=== PATIENT | male | born 1940 | race Caucasian/White ===

== ENCOUNTER → 2019-04-09 10:26 | Day surgery (SDC) | payer MEDICARE ==
[~2019-04-09 10:26] MED LIST: Acetaminophen TAB* 325 MG ONE; Acetaminophen TAB* 325 MG PO ONE; Buffered Lidocaine 1% SYRIN* 1 ML/SYRINGE INTRADERM ONE; Bupivacaine 0.5%* 50 ML MDV VIAL ONE; EPHEDrine (Pressors)* 50 MG/ML VIAL ONE; Glycopyrrolate IV* 0.2 MG/ML 1 ML VIAL ONE; HYDROmorphone INJ1* 1 MG/ML SYRINGE IV PRN; Ketorolac INJ* 30 MG/ML 1 ML VIAL ONE; Lactated Ringers 1000 ML Bag* 1,000 ML IV SCH; Lidocaine 2% PF* 10 ML AMP ONE; Midazolam* 1 MG/ML 2 ML VIAL (2 MG) ONE; Naloxone* 0.4 MG/ML 1 ML VIAL IV PRN; Neostigmine Methylsulfate* 3 MG/3 ML SYRINGE ONE; Ondansetron INJ* 2 MG/ML VIAL IV PRN; Ondansetron INJ* 2 MG/ML VIAL ONE; PROCHLORPERAZINE INJ 5 MG/ML 2 ML VIAL IV PRN; Propofol* 10 MG/ML 20 ML BTL ONE; Rocuronium* 10 MG/ML VIAL ONE; Succinylcholine* 20 MG/ML 10 ML VIAL ONE; Vancomycin(*) 1,000 MG in NS 0.9% 250 ML* 250 ML IV ONE; diPHENhydraMINE IV* 50 MG/ML 1 ml VIAL (BENADRYL) IV PRN; fentaNYL* 50 MCG/ML 5 ML VIAL (250 MCG VIAL) ONE; oxyCODONE TAB* 5 MG TAB PO PRN
[2019-04-09 11:42] LABS: ABS Eosinophils 0.1 10^3/ul (0-0.6); ABS Monocytes 0.8 10^3/ul (0-0.8); ABS Neutrophils 2.8 10^3/ul (1.5-7.7); Eosinophil % 2.9 %; Hematocrit 32 % (42-52); Hemoglobin 11.3 g/dL (14.0-18.0); Lymphocyte % 20.8 %; Mean Corpuscular HGB Conc 35 g/dL (31-36); Mean Corpuscular Hemoglobin 38 pg (27-31); Mean Corpuscular Volume 109 fL (80-94); Mean Platelet Volume 8.5 fL (7.4-10.4); Nucleated Red Blood Cells % 0.1; Platelet Count 168 10^3/uL (150-450); Red Blood Count 2.97 10^6 /uL (4.18-5.48); Red Cell Distribution Width 17 % (10-15); White Blood Count 4.7 10^3/uL (3.5-10.8)
--- NOTE | 2019-04-09 20:00 | OP ---
DATE OF OPERATION: 04/09/19 - [facility] DATE OF : 42 SURGEON: Cole Thornton MD FLOOR HELPER: ISRAEL Beard PRE-OP DIAGNOSIS: Left inguinal hernia. POST-OP DIAGNOSIS: Left inguinal hernia. OPERATIVE PROCEDURE: Repair of left inguinal hernia with mesh, robotic. INDICATIONS FOR PROCEDURE: Left inguinal hernia, symptomatic. Risks including , but not limited to bleeding, infection, injury to intraabdominal contents including the bowel, pelvic nerves and vessels, recurrence of the hernia explained to the patient, who seemed to understand, agreed to the procedure, and all questions were answered. DESCRIPTION OF PROCEDURE: The patient was taken to the operating room, placed supine. Preoperative antibiotics had been given. After the successful induction of general endotracheal anesthesia, the abdomen was prepped and draped in a sterile fashion. A left upper quadrant 5-mm Optiview trocar was placed under direct visualization of the camera. Pneumoperitoneum was achieved to 15 mmHg. A camera was placed in the abdomen. The abdomen was scanned. There was no obvious injury from trocar placement. An 8-mm supraumbilical and a right upper quadrant 8-mm robotic trocar were placed under direct visualization of the camera. The 5-mm trocar was replaced with an 8-mm trocar. The patient was placed in the slight Trendelenburg position. The robot was brought in and then docked. A left inguinal anatomic mesh and 3-0 V-Loc suture were placed into the abdomen under direct visualization of the camera. The peritoneum was taken down along with a large hernia sac, which was gently dissected from the spermatic cord. The anatomic mesh was then placed over the left hemipelvis covering the femoral, direct, and indirect spaces. The peritoneum was then closed using running 3-0 V-Loc suture. The needle was removed. The abdomen was scanned. There was no obvious injury. Pneumoperitoneum was released from the abdomen. The trocars were removed. The skin was closed with Monocryl and glue. The patient tolerated the procedure well. He was extubated and taken to Recovery in stable condition. [id number]/CPS #: [id number] [facility]
[2019-04-13 20:05] VITALS: BP 133/71
== END | disposition home or self-care (01) ==
LOC: OR 10:26
PROVIDERS: ATTEND Surgery
DX: K40.90 Unilateral inguinal hernia, without obstruction or gangrene, not specified as recurrent (principal); I10 Essential (primary) hypertension; E78.5 Hyperlipidemia, unspecified; R73.03 Prediabetes; Z87.891 Personal history of nicotine dependence; C15.9 Malignant neoplasm of esophagus, unspecified
CPT/HCPCS: 49650; S2900; 36415; 85025; A9270-GY; C1781; J0330; J1885; J2001; J2250; J2405; J2704; J2710; J3010; J3370; J3490

== ENCOUNTER 2020-11-04 04:01 | Inpatient (IN) ==
[2020-11-04 04:41] LABS: ABS Lymphocytes 0.4 10^3/ul (1.0-4.8); ABS Monocytes 0.2 10^3/ul (0-0.8); ABS Neutrophils 1.2 10^3/ul (1.5-7.7); Eosinophil % 1.5 %; Hematocrit 32 % (42-52); Hemoglobin 10.8 g/dL (14.0-18.0); Lymphocyte % 23.7 %; Mean Corpuscular HGB Conc 33 g/dL (31-36); Mean Corpuscular Hemoglobin 35 pg (27-31); Mean Corpuscular Volume 105 fL (80-94); Nucleated Red Blood Cells % 0.6; Platelet Count 103 10^3/uL (150-450); Red Blood Count 3.08 10^6 /uL (4.18-5.48); Red Cell Distribution Width 22 % (10-15); White Blood Count 1.8 10^3/uL (3.5-10.8)
[2020-11-04 04:55] LABS: INR 1.11 (0.82-1.09)
[2020-11-04 05:00] LABS: Albumin 3.8 g/dL (3.2-5.2); Albumin/Globulin Ratio 1.2 (1-3); Calcium 8.8 mg/dL (8.6-10.3); EGFR African American 53.4 (>60); EGFR Non-African American 44.1 (>60); Globulin 3.2 g/dL (2-4); Total Bilirubin 0.9 mg/dL (0.2-1.0)
[2020-11-04 05:01] LABS: Troponin I 0.01 ng/mL (<0.03)
[2020-11-04] MEDS ORDERED: Morphine 2 MG/ML SYRINGE IV ONE (05:57)
[2020-11-04 07:44] LABS: Troponin I 0.03 ng/mL (<0.03)
[2020-11-04] MEDS ORDERED: Piperacillin/Tazobac ADVAN 3.375 GM in NS 0.9% 100 ml BAG 100 ML IV ONE (08:53)
[2020-11-04] MEDS ORDERED: Ondansetron 4 mg VIAL 2 MG/ML 2 ml VIAL IV PRN (10:17)
[2020-11-04 10:19] LABS: Troponin I 0.13 ng/mL (<0.03)
[2020-11-04] MEDS ORDERED: NS 0.9% 1000 ml BAG 1,000 ML IV SCH (10:30)
[2020-11-04] MEDS ORDERED: Zosyn per Pharmacy NOTE FOLLOW UP SCH (11:00)
[2020-11-04] MEDS: ZOSYN 3.375 GM Q8H per EXTENDED INFUSION IV SCH ×2 (13:26→21:32)
[2020-11-04 13:27] LABS: Troponin I 0.53 ng/mL (<0.03)
[2020-11-04] MEDS: Morphine 2 MG/ML SYRINGE IV PRN (13:45)
[2020-11-04] MEDS ORDERED: fentaNYL 100 mcg/2 ml 50 MCG/ML VIAL ONE ×2 (15:26→15:54)
[2020-11-04 18:29] LABS: Troponin I 1.72 ng/mL (<0.03)
[2020-11-05 01:34] LABS: Troponin I 4.24 ng/mL (<0.03)
[2020-11-05] MEDS ORDERED: Heparin DRIP 25,000 UNITS BAG 25,000 UNITS/500 ML BAG IV SCH (02:15)
[2020-11-05] MEDS ORDERED: Heparin 5000 UNITS/ML 1 mL VIAL IV SCH (03:00)
[2020-11-05 03:58] LABS: EGFR African American 44.5 (>60); EGFR Non-African American 36.8 (>60)
[2020-11-05 04:44] LABS: Hematocrit 32 % (42-52); Hemoglobin 11.1 g/dL (14.0-18.0); Mean Corpuscular HGB Conc 35 g/dL (31-36); Mean Corpuscular Hemoglobin 36 pg (27-31); Mean Corpuscular Volume 105 fL (80-94); Mean Platelet Volume 8.9 fL (7.4-10.4); Platelet Count 76 10^3/uL (150-450); Red Blood Count 3.07 10^6 /uL (4.18-5.48); Red Cell Distribution Width 22 % (10-15); White Blood Count 3.6 10^3/uL (3.5-10.8)
[2020-11-05] MEDS: ZOSYN 3.375 GM Q8H per EXTENDED INFUSION IV SCH ×3 (05:51→23:06)
[2020-11-05 06:07] LABS: ABS Lymphocytes 0.4 10^3/ul (1.0-4.8); ABS Monocytes 0.2 10^3/ul (0-0.8); ABS Neutrophils 2.9 10^3/ul (1.5-7.7); Eosinophil % 0.1 %; Lymphocyte % 11.3 %; Nucleated Red Blood Cells % 0.2
[2020-11-05 07:21] LABS: Troponin I 3.54 ng/mL (<0.03)
[2020-11-05] MEDS: Morphine 2 MG/ML SYRINGE IV PRN (08:43)
[2020-11-05] MEDS ORDERED: NS 0.9% 500 ml BAG 500 ML IV ONE (09:16)
[2020-11-05] MEDS ORDERED: Enoxaparin 40 MG/0.4 ML SYR SUBCUT SCH (11:00)
[2020-11-05 12:13] LABS: Albumin/Globulin Ratio 1.1 (1-3); Calcium 7.6 mg/dL (8.6-10.3); EGFR African American 43.2 (>60); EGFR Non-African American 35.7 (>60); Globulin 2.8 g/dL (2-4); HDL Cholesterol 51.2 mg/dL; Potassium 3.4 mmol/L (3.5-5.0); Total Bilirubin 0.8 mg/dL (0.2-1.0); Total Protein 5.8 g/dL (6.4-8.9)
[2020-11-05 12:14] LABS: ABS Lymphocytes 0.5 10^3/ul (1.0-4.8); ABS Monocytes 0.1 10^3/ul (0-0.8); Eosinophil % 0.1 %; Hematocrit 29 % (42-52); Hemoglobin 9.9 g/dL (14.0-18.0); Lymphocyte % 11.1 %; Mean Corpuscular HGB Conc 34 g/dL (31-36); Mean Corpuscular Hemoglobin 36 pg (27-31); Mean Corpuscular Volume 106 fL (80-94); Mean Platelet Volume 10.7 fL (7.4-10.4); Nucleated Red Blood Cells % 0.1; Platelet Count 76 10^3/uL (150-450); Red Blood Count 2.75 10^6 /uL (4.18-5.48); Red Cell Distribution Width 22 % (10-15); White Blood Count 4.7 10^3/uL (3.5-10.8)
[2020-11-05] MEDS ORDERED: Perflutren Lipid Microsphere 3 ML VIAL ONE (13:10)
[2020-11-06] MEDS: ZOSYN 3.375 GM Q8H per EXTENDED INFUSION IV SCH ×3 (05:07→20:26)
[2020-11-06 05:29] LABS: ABS Eosinophils 0.1 10^3/ul (0-0.6); ABS Lymphocytes 0.7 10^3/ul (1.0-4.8); ABS Monocytes 0.2 10^3/ul (0-0.8); ABS Neutrophils 4.8 10^3/ul (1.5-7.7); Hematocrit 29 % (42-52); Hemoglobin 9.9 g/dL (14.0-18.0); Mean Corpuscular HGB Conc 34 g/dL (31-36); Mean Corpuscular Hemoglobin 36 pg (27-31); Mean Corpuscular Volume 106 fL (80-94); Mean Platelet Volume 10.1 fL (7.4-10.4); Nucleated Red Blood Cells % 0.1; Platelet Count 78 10^3/uL (150-450); Red Blood Count 2.76 10^6 /uL (4.18-5.48); Red Cell Distribution Width 22 % (10-15); White Blood Count 5.7 10^3/uL (3.5-10.8)
[2020-11-06] MEDS ORDERED: NS 0.9% 500 ml BAG 500 ML IV ONE (11:17)
[2020-11-06 16:18] LABS: Urine Appearance Turbid; Urine Bilirubin Negative (Negative); Urine Blood 1+ (Negative); Urine Color Amber; Urine Glucose 1+(50 mg/dL) (Negative); Urine Ketones Negative (Negative); Urine Nitrite Negative (Negative); Urine Protein 2+(100 mg/dL) (Negative); Urine Specific Gravity 1.027 (1.002-1.030); Urine Urobilinogen Negative (Negative)
[2020-11-06 16:25] LABS: Urine Bacteria Absent (Absent); Urine Red Blood Cell Trace(0-2/hpf) (Absent); Urine White Blood Cell Absent (Absent)
[2020-11-07] MEDS: ZOSYN 3.375 GM Q8H per EXTENDED INFUSION IV SCH ×3 (05:29→22:41)
[2020-11-07 07:01] LABS: Anion Gap 6 mmol/L (2-11); Blood Urea Nitrogen 20 mg/dL (6-24); CO2 Carbon Dioxide 24 mmol/L (22-32); Calcium 7.6 mg/dL (8.6-10.3); Chloride 104 mmol/L (101-111); EGFR Non-African American 56.2 (>60); Glucose 106 mg/dL (70-100); Potassium 3.3 mmol/L (3.5-5.0); Sodium 134 mmol/L (135-145)
[2020-11-07 08:51] LABS: Troponin I 0.63 ng/mL (<0.03)
[2020-11-07 09:22] LABS: Magnesium 1.9 mg/dL (1.9-2.7)
[2020-11-07] MEDS ORDERED: Potassium Chlor 20 meq TAB.ER PO ONE (14:00)
[2020-11-07 18:35] LABS: ALT 14 U/L (7-52); AST 30 U/L (13-39); Albumin 2.7 g/dL (3.2-5.2); Alkaline Phosphatase 54 U/L (35-149); Globulin 2.7 g/dL (2-4); Total Protein 5.4 g/dL (6.4-8.9)
[2020-11-08] MEDS: ZOSYN 3.375 GM Q8H per EXTENDED INFUSION IV SCH ×3 (05:15→21:14)
[2020-11-08 05:39] LABS: ABS Eosinophils 0.1 10^3/ul (0-0.6); ABS Lymphocytes 0.6 10^3/ul (1.0-4.8); ABS Monocytes 0.4 10^3/ul (0-0.8); ABS Neutrophils 2.2 10^3/ul (1.5-7.7); Eosinophil % 4.2 %; Hematocrit 24 % (42-52); Hemoglobin 8.4 g/dL (14.0-18.0); Lymphocyte % 17.2 %; Mean Corpuscular HGB Conc 34 g/dL (31-36); Mean Corpuscular Hemoglobin 36 pg (27-31); Mean Corpuscular Volume 104 fL (80-94); Mean Platelet Volume 8.3 fL (7.4-10.4); Nucleated Red Blood Cells % 0.2; Platelet Count 59 10^3/uL (150-450); Red Blood Count 2.34 10^6 /uL (4.18-5.48); Red Cell Distribution Width 21 % (10-15); White Blood Count 3.4 10^3/uL (3.5-10.8)
[2020-11-08 05:49] LABS: Albumin 2.8 g/dL (3.2-5.2); Calcium 7.5 mg/dL (8.6-10.3); EGFR African American 79.8 (>60); Globulin 2.7 g/dL (2-4); Potassium 3.8 mmol/L (3.5-5.0); Total Bilirubin 0.6 mg/dL (0.2-1.0); Total Protein 5.5 g/dL (6.4-8.9)
[2020-11-09] MEDS: ZOSYN 3.375 GM Q8H per EXTENDED INFUSION IV SCH ×3 (05:16→21:18)
[2020-11-09 07:26] LABS: ABS Eosinophils 0.2 10^3/ul (0-0.6); ABS Lymphocytes 0.6 10^3/ul (1.0-4.8); ABS Monocytes 0.6 10^3/ul (0-0.8); ABS Neutrophils 1.3 10^3/ul (1.5-7.7); Eosinophil % 5.8 %; Hematocrit 25 % (42-52); Hemoglobin 8.7 g/dL (14.0-18.0); Lymphocyte % 21.1 %; Mean Corpuscular HGB Conc 35 g/dL (31-36); Mean Corpuscular Hemoglobin 36 pg (27-31); Mean Corpuscular Volume 104 fL (80-94); Mean Platelet Volume 8.4 fL (7.4-10.4); Nucleated Red Blood Cells % 0.1; Platelet Count 66 10^3/uL (150-450); Red Blood Count 2.41 10^6 /uL (4.18-5.48); Red Cell Distribution Width 22 % (10-15); White Blood Count 2.7 10^3/uL (3.5-10.8)
[2020-11-09 07:38] LABS: Albumin 2.7 g/dL (3.2-5.2); Albumin/Globulin Ratio 0.9 (1-3); Calcium 7.8 mg/dL (8.6-10.3); EGFR Non-African American 65.3 (>60); Total Bilirubin 0.6 mg/dL (0.2-1.0); Total Protein 5.7 g/dL (6.4-8.9)
[2020-11-10] MEDS: ZOSYN 3.375 GM Q8H per EXTENDED INFUSION IV SCH (05:53)
[2020-11-10 06:39] LABS: ABS Eosinophils 0.2 10^3/ul (0-0.6); ABS Lymphocytes 0.8 10^3/ul (1.0-4.8); ABS Monocytes 0.7 10^3/ul (0-0.8); ABS Neutrophils 1.8 10^3/ul (1.5-7.7); Eosinophil % 4.8 %; Hematocrit 27 % (42-52); Hemoglobin 9.2 g/dL (14.0-18.0); Lymphocyte % 21.8 %; Mean Corpuscular HGB Conc 34 g/dL (31-36); Mean Corpuscular Hemoglobin 36 pg (27-31); Mean Corpuscular Volume 105 fL (80-94); Platelet Count 89 10^3/uL (150-450); Red Blood Count 2.56 10^6 /uL (4.18-5.48); Red Cell Distribution Width 21 % (10-15); White Blood Count 3.5 10^3/uL (3.5-10.8)
[2020-11-10 06:43] LABS: Albumin 2.8 g/dL (3.2-5.2); Albumin/Globulin Ratio 0.9 (1-3); Calcium 8.1 mg/dL (8.6-10.3); EGFR African American 75.7 (>60); EGFR Non-African American 62.6 (>60); Globulin 3.1 g/dL (2-4); Total Bilirubin 0.6 mg/dL (0.2-1.0); Total Protein 5.9 g/dL (6.4-8.9)
[2020-11-10 11:23] VITALS: BP 130/56
== END 2020-11-10 14:07 | disposition home or self-care (01) | DRG 444 ==
LOC: ED 04:01 → SSU 10:09 → MEDTELE 21:11
PROVIDERS: ADMIT Internal Medicine Hematology & Oncology; ATTEND Internal Medicine

== ENCOUNTER 2021-12-19 21:25 | Inpatient (IN) ==
[2021-12-19 22:28] LABS: ABS Lymphocytes 0.1 10^3/ul (1.0-4.8); Eosinophil % 0.1 %; Hematocrit 29 % (42-52); Hemoglobin 9.7 g/dL (14.0-18.0); Lymphocyte % 5.6 %; Mean Corpuscular HGB Conc 33 g/dL (31-36); Mean Corpuscular Hemoglobin 36 pg (27-31); Mean Corpuscular Volume 109 fL (80-94); Nucleated Red Blood Cells % 0.5; Platelet Count 107 10^3/uL (150-450); Red Cell Distribution Width 23 % (10-15); White Blood Count 2.1 10^3/uL (3.5-10.8)
[2021-12-19 22:34] LABS: INR 1.23 (0.89-1.11)
[2021-12-19 22:45] LABS: Albumin 3.7 g/dL (3.2-5.2); Albumin/Globulin Ratio 1.5 (1-3); Calcium 8.7 mg/dL (8.6-10.3); Globulin 2.4 g/dL (2-4); Potassium 3.8 mmol/L (3.5-5.0); Total Bilirubin 2.7 mg/dL (0.2-1.0); Total Protein 6.1 g/dL (6.4-8.9); eGFR CKD-EPI 43.9 (>60)
[2021-12-19 23:09] LABS: Anisocytosis 2+; Macrocytosis 1+
[2021-12-19 23:10] LABS: Burr Cells 1+
[2021-12-19 23:11] LABS: Acanthocytes 2+
[2021-12-19 23:38] LABS: High Sensitivity Troponin 1 Hr 31 pg/mL (<20)
[2021-12-20] MEDS ORDERED: NS 0.9% 1000 ml BAG 1,000 ML IV ONE ×3 (01:49→10:58)
[2021-12-20] MEDS ORDERED: ceFOXitin 2 GM IVPREMIX 2 GM/50 ML BAG IVPB ONE (06:30)
[2021-12-20 06:58] LABS: C Reactive Protein 11.23 mg/L (<8.01)
[2021-12-20] MEDS ORDERED: NS 0.9% 1000 ml BAG 1,000 ML IV SCH (10:00)
[2021-12-20] MEDS ORDERED: NORMOSOL-R pH 7.4 1000 mL BAG 1,000 ML IV SCH ×2 (10:00→23:45)
[2021-12-20 10:09] LABS: ABS Lymphocytes 0.3 10^3/ul (1.0-4.8); ABS Monocytes 0.5 10^3/ul (0-0.8); ABS Neutrophils 12.7 10^3/ul (1.5-7.7); Hematocrit 25 % (42-52); Lymphocyte % 2.3 %; Mean Corpuscular HGB Conc 33 g/dL (31-36); Mean Corpuscular Hemoglobin 35 pg (27-31); Mean Corpuscular Volume 107 fL (80-94); Mean Platelet Volume 9.3 fL (7.4-10.4); Platelet Count 95 10^3/uL (150-450); Red Cell Distribution Width 24 % (10-15); White Blood Count 13.5 10^3/uL (3.5-10.8)
[2021-12-20 10:51] LABS: Albumin 2.9 g/dL (3.2-5.2); Albumin/Globulin Ratio 1.5 (1-3); C Reactive Protein 48.41 mg/L (<8.01); Calcium 7.8 mg/dL (8.6-10.3); Globulin 1.9 g/dL (2-4); Potassium 3.1 mmol/L (3.5-5.0); Total Bilirubin 2.9 mg/dL (0.2-1.0); Total Protein 4.8 g/dL (6.4-8.9); eGFR CKD-EPI 36.4 (>60)
[2021-12-20] MEDS ORDERED: Piperacillin/Tazobac ADVAN 3.375 GM in NS 0.9% 100 ml BAG 100 ML IV ONE (11:17)
[2021-12-20] MEDS ORDERED: Zosyn per Pharmacy NOTE FOLLOW UP SCH (12:00)
[2021-12-20] MEDS ORDERED: KCL 20 MEQ/100 ML IVPREMIX 20 MEQ/100 ML BAG IV ONE (12:52)
[2021-12-20] MEDS ORDERED: Norepinephrine 16MCG/ML BAG NS 4,000 MCG/250 ML BAG IV SCH (13:00)
[2021-12-20] MEDS: NORMOSOL-R pH 7.4 1000 mL BAG 1,000 ML IV SCH (13:25)
[2021-12-20] MEDS ORDERED: Norepinephrine 16MCG/ML BAGD5W 4,000 MCG/250 ML BAG IV SCH (14:00)
[2021-12-20] MEDS ORDERED: Ondansetron 4 mg VIAL 2 MG/ML 2 ml VIAL IV PRN (14:16)
[2021-12-20] MEDS ORDERED: oxyCODONE/Acetamin 5/325 mg TAB PO PRN (14:16)
[2021-12-20] MEDS ORDERED: fentaNYL 100 mcg/2 ml 50 MCG/ML VIAL IV PRN (14:16)
[2021-12-20] MEDS ORDERED: Naloxone 0.4 mg VIAL 0.4 mg/ml 1 ml VIAL IV PRN (14:16)
[2021-12-20] MEDS ORDERED: fentaNYL 100 mcg/2 ml 50 MCG/ML VIAL ONE (14:35)
[2021-12-20] MEDS ORDERED: Rocuronium 50 mg VIAL 10 mg/ml 5 ml VIAL (50 mg) ONE ×2 (14:35→16:37)
[2021-12-20] MEDS ORDERED: Propofol 10 MG/ML 20 ML BTL ONE (16:37)
[2021-12-20] MEDS ORDERED: Dexamethasone IV 4 MG/ML VIAL 1 ml VIAL ONE (16:38)
[2021-12-20] MEDS ORDERED: Ondansetron 4 mg VIAL 2 MG/ML 2 ml VIAL ONE (16:38)
[2021-12-20] MEDS ORDERED: Midazolam 2 mg/2 ml VIAL 1 mg/ml 2 ml VIAL (2 mg) ONE (18:16)
[2021-12-20] MEDS ORDERED: Propofol 10 mg/ml 100 ML BTL 100 ML ONE (18:43)
[2021-12-20] MEDS ORDERED: Propofol 10 mg/ml 100 ML BTL 100 ML IV SCH (19:00)
[2021-12-20] MEDS: ZOSYN 3.375 GM Q8H per EXTENDED INFUSION IV SCH (19:24)
[2021-12-20 21:44] LABS: Urine Appearance Clear; Urine Color Yellow; Urine Specific Gravity 1.025 (1.005-1.030); Urine pH 5.5 (5.0-9.0)
[2021-12-20 21:45] LABS: Urine Bilirubin 1+ (Small) (Negative); Urine Glucose Negative (Negative); Urine Ketones 1+ (15mg/dL) (Negative); Urine Nitrite Negative (Negative); Urine Protein 2+ (100 mg/dL) (Negative); Urine Urobilinogen 0.2 (Negative) (Negative)
[2021-12-20] MEDS: Pantoprazole VIAL 40 MG VIAL IV SCH (21:56)
[2021-12-20] MEDS: Chlorhexidine MOUTHWASH 0.12% 15 ML UDC TOPICAL SCH ×2 (21:56→23:34)
[2021-12-20] MEDS: Enoxaparin 30 MG/0.3 ML SYR SUBCUT SCH (21:56)
[2021-12-20 22:27] LABS: Urine Bacteria Absent (Absent); Urine Red Blood Cell 3+(>10/hpf) (Absent); Urine Squamous Epithelial Cell Present (Absent); Urine White Blood Cell Trace(0-5/hpf) (Absent)
[2021-12-20] MEDS ORDERED: ZOSYN 3.375 GM x ONE DOSE over 30 miuntes IV (23:30)
[2021-12-21] MEDS: Chlorhexidine MOUTHWASH 0.12% 15 ML UDC TOPICAL SCH ×2 (04:31→07:44)
[2021-12-21] MEDS ORDERED: Norepinephrine 16MCG/ML BAGD5W 4,000 MCG/250 ML BAG IV SCH ×2 (05:25→14:22)
[2021-12-21 05:28] LABS: ABS Basophils 0.1 10^3/ul (0-0.2); ABS Lymphocytes 0.2 10^3/ul (1.0-4.8); ABS Monocytes 0.4 10^3/ul (0-0.8); ABS Neutrophils 17.4 10^3/ul (1.5-7.7); Eosinophil % 0.1 %; Hematocrit 29 % (42-52); Hemoglobin 9.3 g/dL (14.0-18.0); Lymphocyte % 0.9 %; Mean Corpuscular HGB Conc 33 g/dL (31-36); Mean Corpuscular Hemoglobin 35 pg (27-31); Mean Corpuscular Volume 107 fL (80-94); Mean Platelet Volume 9.2 fL (7.4-10.4); Platelet Count 109 10^3/uL (150-450); Red Blood Count 2.66 10^6 /uL (4.18-5.48); Red Cell Distribution Width 24 % (10-15); White Blood Count 18.1 10^3/uL (3.5-10.8)
[2021-12-21] MEDS: ZOSYN 3.375 GM Q8H per EXTENDED INFUSION IV SCH ×4 (05:47→20:51)
[2021-12-21 05:51] LABS: Albumin/Globulin Ratio 1.4 (1-3); C Reactive Protein 109.82 mg/L (<8.01); Calcium 7.5 mg/dL (8.6-10.3); Globulin 2.1 g/dL (2-4); Potassium 4.3 mmol/L (3.5-5.0); Total Bilirubin 2.8 mg/dL (0.2-1.0); Total Protein 5.1 g/dL (6.4-8.9); eGFR CKD-EPI 44.3 (>60)
[2021-12-21] MEDS ORDERED: Perflutren Lipid Microsphere 3 ML VIAL ONE (08:42)
[2021-12-21] MEDS: NORMOSOL-R pH 7.4 1000 mL BAG 1,000 ML IV SCH (10:53)
[2021-12-21] MEDS: Enoxaparin 30 MG/0.3 ML SYR SUBCUT SCH (20:52)
[2021-12-21] MEDS: Pantoprazole VIAL 40 MG VIAL IV SCH (20:52)
[2021-12-22] MEDS: NORMOSOL-R pH 7.4 1000 mL BAG 1,000 ML IV SCH (01:45)
[2021-12-22] MEDS: ZOSYN 3.375 GM Q8H per EXTENDED INFUSION IV SCH ×3 (05:53→22:41)
[2021-12-22 06:41] LABS: Hematocrit 21 % (42-52); Hemoglobin 7.5 g/dL (14.0-18.0); Mean Corpuscular HGB Conc 35 g/dL (31-36); Mean Corpuscular Hemoglobin 37 pg (27-31); Mean Corpuscular Volume 105 fL (80-94); Mean Platelet Volume 9.9 fL (7.4-10.4); Platelet Count 73 10^3/uL (150-450); Red Blood Count 2.03 10^6 /uL (4.18-5.48); Red Cell Distribution Width 23 % (10-15); White Blood Count 9.2 10^3/uL (3.5-10.8)
[2021-12-22 06:56] LABS: ABS Eosinophils 0.1 10^3/ul (0-0.6); ABS Lymphocytes 0.2 10^3/ul (1.0-4.8); ABS Monocytes 0.3 10^3/ul (0-0.8); ABS Neutrophils 8.6 10^3/ul (1.5-7.7); Eosinophil % 0.9 %; Lymphocyte % 1.9 %
[2021-12-22 07:24] LABS: Albumin 2.6 g/dL (3.2-5.2); Albumin/Globulin Ratio 1.4 (1-3); Calcium 7.3 mg/dL (8.6-10.3); Globulin 1.8 g/dL (2-4); Total Bilirubin 1.2 mg/dL (0.2-1.0); Total Protein 4.4 g/dL (6.4-8.9)
[2021-12-22] MEDS ORDERED: NORMOSOL-R pH 7.4 1000 mL BAG 1,000 ML IV SCH (08:44)
[2021-12-22 18:27] LABS: Urine Appearance Clear; Urine Bilirubin Negative (Negative); Urine Color Yellow; Urine Glucose Negative (Negative); Urine Ketones Negative (Negative); Urine Nitrite Negative (Negative); Urine Protein 2+ (100 mg/dL) (Negative); Urine Specific Gravity 1.025 (1.005-1.030); Urine pH 5.5 (5.0-9.0)
[2021-12-22 18:41] LABS: Urine Bacteria Absent (Absent); Urine Red Blood Cell 3+(>10/hpf) (Absent); Urine White Blood Cell 1+(6-10/hpf) (Absent)
[2021-12-22] MEDS: Pantoprazole VIAL 40 MG VIAL IV SCH (22:30)
[2021-12-23] MEDS: ZOSYN 3.375 GM Q8H per EXTENDED INFUSION IV SCH ×2 (05:43→13:57)
[2021-12-24 07:41] LABS: ABS Eosinophils 0.2 10^3/ul (0-0.6); ABS Lymphocytes 0.4 10^3/ul (1.0-4.8); ABS Monocytes 0.5 10^3/ul (0-0.8); ABS Neutrophils 2.5 10^3/ul (1.5-7.7); Eosinophil % 4.2 %; Hematocrit 25 % (42-52); Hemoglobin 8.1 g/dL (14.0-18.0); Lymphocyte % 11.7 %; Mean Corpuscular HGB Conc 33 g/dL (31-36); Mean Corpuscular Hemoglobin 35 pg (27-31); Mean Corpuscular Volume 106 fL (80-94); Mean Platelet Volume 10.4 fL (7.4-10.4); Platelet Count 72 10^3/uL (150-450); Red Cell Distribution Width 24 % (10-15); White Blood Count 3.6 10^3/uL (3.5-10.8)
[2021-12-24 08:01] LABS: ALT 135 U/L (7-52); AST 105 U/L (13-39); Albumin 2.4 g/dL (3.2-5.2); Albumin/Globulin Ratio 1.3 (1-3); Alkaline Phosphatase 183 U/L (35-149); Anion Gap 5 mmol/L (2-11); Blood Urea Nitrogen 18 mg/dL (6-24); CO2 Carbon Dioxide 23 mmol/L (22-32); Calcium 7.3 mg/dL (8.6-10.3); Chloride 110 mmol/L (101-111); Globulin 1.8 g/dL (2-4); Glucose 77 mg/dL (70-100); Magnesium 1.8 mg/dL (1.9-2.7); Potassium 3.5 mmol/L (3.5-5.0); Sodium 138 mmol/L (135-145); Total Protein 4.2 g/dL (6.4-8.9); eGFR CKD-EPI 86.9 (>60)
[2021-12-24 08:35] LABS: Folate > 20.00 ng/mL (5.90-24.80)
[2021-12-24 08:36] LABS: Vitamin B12 1255 pg/mL (180-914)
[2021-12-24] MEDS ORDERED: Potassium Chloride LIQUID 20 MEQ/15 ML LIQUID PO ONE (19:32)
[2021-12-25 06:21] LABS: INR 1.16 (0.89-1.11)
[2021-12-25 06:33] LABS: ABS Eosinophils 0.2 10^3/ul (0-0.6); ABS Lymphocytes 0.7 10^3/ul (1.0-4.8); ABS Monocytes 0.6 10^3/ul (0-0.8); ABS Neutrophils 2.3 10^3/ul (1.5-7.7); Eosinophil % 4.4 %; Hematocrit 25 % (42-52); Hemoglobin 8.4 g/dL (14.0-18.0); Lymphocyte % 17.3 %; Mean Corpuscular HGB Conc 34 g/dL (31-36); Mean Corpuscular Hemoglobin 36 pg (27-31); Mean Corpuscular Volume 106 fL (80-94); Mean Platelet Volume 10.5 fL (7.4-10.4); Nucleated Red Blood Cells % 0.1; Platelet Count 88 10^3/uL (150-450); Red Blood Count 2.36 10^6 /uL (4.18-5.48); Red Cell Distribution Width 24 % (10-15); White Blood Count 3.8 10^3/uL (3.5-10.8)
[2021-12-25 06:51] LABS: Calcium 7.4 mg/dL (8.6-10.3); Magnesium 1.8 mg/dL (1.9-2.7); Potassium 3.6 mmol/L (3.5-5.0); eGFR CKD-EPI 87.5 (>60)
[2021-12-25] MEDS ORDERED: Magnesium Sulfate 2 gm BAG 2 GM/50 ML BAG IVPB ONE (07:06)
[2021-12-25] MEDS ORDERED: fentaNYL 100 mcg/2 ml 50 MCG/ML VIAL ONE (08:27)
[2021-12-25] MEDS ORDERED: Lidocaine 2% JELLY 6 ML Topical TOPICAL ONE (08:27)
[2021-12-25] MEDS: Cefdinir SUSP ORALSYR 50 MG/ML (250 mg/5 ml) PO SCH ×2 (11:25→20:10)
[2021-12-25 18:21] LABS: % Iron Saturation 25 % (15-55); Iron 45 ug/dL (50-212); Total Iron Binding Capacity 181 mcg/dL (250-450); Transferrin 129 mg/dL (203-362); Unsaturated Iron Binding 136 ug/dL
[2021-12-25 19:24] LABS: Ferritin > 1500.0 ng/mL (24-336)
[2021-12-25] MEDS: Enoxaparin 30 MG/0.3 ML SYR SUBCUT SCH (20:10)
[2021-12-26 05:52] LABS: Hematocrit 28 % (42-52); Hemoglobin 9.2 g/dL (14.0-18.0); Mean Corpuscular HGB Conc 33 g/dL (31-36); Mean Corpuscular Hemoglobin 35 pg (27-31); Mean Corpuscular Volume 106 fL (80-94); Mean Platelet Volume 10.3 fL (7.4-10.4); Platelet Count 118 10^3/uL (150-450); Red Blood Count 2.61 10^6 /uL (4.18-5.48); Red Cell Distribution Width 24 % (10-15); White Blood Count 4.5 10^3/uL (3.5-10.8)
[2021-12-26 05:56] LABS: Calcium 7.7 mg/dL (8.6-10.3); Potassium 3.5 mmol/L (3.5-5.0)
[2021-12-26 06:01] LABS: eGFR CKD-EPI 89.1 (>60)
[2021-12-26] MEDS: Cefdinir SUSP ORALSYR 50 MG/ML (250 mg/5 ml) PO SCH ×2 (08:46→19:56)
[2021-12-26] MEDS ORDERED: Pantoprazole 20 mg TAB (NF) PO SCH (09:00)
[2021-12-26] MEDS ORDERED: Lactated Ringers 1000 ml BAG 1,000 ML IV SCH (11:00)
[2021-12-26] MEDS: Enoxaparin 30 MG/0.3 ML SYR SUBCUT SCH (19:55)
[2021-12-27 07:07] LABS: Hematocrit 27 % (42-52); Hemoglobin 9.1 g/dL (14.0-18.0); Mean Corpuscular HGB Conc 34 g/dL (31-36); Mean Corpuscular Hemoglobin 36 pg (27-31); Mean Corpuscular Volume 106 fL (80-94); Mean Platelet Volume 9.8 fL (7.4-10.4); Platelet Count 132 10^3/uL (150-450); Red Cell Distribution Width 24 % (10-15); White Blood Count 5.8 10^3/uL (3.5-10.8)
[2021-12-27 07:35] LABS: Calcium 7.8 mg/dL (8.6-10.3); Magnesium 1.8 mg/dL (1.9-2.7); Potassium 3.7 mmol/L (3.5-5.0); eGFR CKD-EPI 92.4 (>60)
[2021-12-27] MEDS ORDERED: Magnesium Sulfate 2 gm BAG 2 GM/50 ML BAG IVPB ONE (07:56)
[2021-12-27] MEDS: Lansoprazole SUSP ORALSYR 3 MG/ML PO SCH (10:24)
[2021-12-27] MEDS: Cefdinir SUSP ORALSYR 50 MG/ML (250 mg/5 ml) PO SCH ×2 (10:25→20:41)
[2021-12-27] MEDS: Enoxaparin 30 MG/0.3 ML SYR SUBCUT SCH (20:41)
[2021-12-28 05:34] LABS: ABS Eosinophils 0.3 10^3/ul (0-0.6); ABS Lymphocytes 0.9 10^3/ul (1.0-4.8); ABS Monocytes 0.6 10^3/ul (0-0.8); ABS Neutrophils 4.2 10^3/ul (1.5-7.7); Eosinophil % 4.4 %; Hematocrit 25 % (42-52); Hemoglobin 8.4 g/dL (14.0-18.0); Lymphocyte % 15.3 %; Mean Corpuscular HGB Conc 33 g/dL (31-36); Mean Corpuscular Hemoglobin 35 pg (27-31); Mean Corpuscular Volume 106 fL (80-94); Mean Platelet Volume 9.7 fL (7.4-10.4); Platelet Count 150 10^3/uL (150-450); Red Blood Count 2.39 10^6 /uL (4.18-5.48); Red Cell Distribution Width 24 % (10-15)
[2021-12-28 06:00] LABS: Calcium 7.4 mg/dL (8.6-10.3); Potassium 3.6 mmol/L (3.5-5.0); eGFR CKD-EPI 94.4 (>60)
[2021-12-28] MEDS: Cefdinir SUSP ORALSYR 50 MG/ML (250 mg/5 ml) PO SCH ×2 (09:28→22:06)
[2021-12-28] MEDS: Lansoprazole SUSP ORALSYR 3 MG/ML PO SCH (09:52)
[2021-12-28] MEDS: Enoxaparin 30 MG/0.3 ML SYR SUBCUT SCH (22:10)
[2021-12-29 04:57] LABS: ABS Eosinophils 0.2 10^3/ul (0-0.6); ABS Lymphocytes 0.9 10^3/ul (1.0-4.8); ABS Monocytes 0.6 10^3/ul (0-0.8); ABS Neutrophils 4.9 10^3/ul (1.5-7.7); Eosinophil % 2.5 %; Hematocrit 25 % (42-52); Hemoglobin 8.2 g/dL (14.0-18.0); Lymphocyte % 13.2 %; Mean Corpuscular HGB Conc 33 g/dL (31-36); Mean Corpuscular Hemoglobin 35 pg (27-31); Mean Corpuscular Volume 107 fL (80-94); Mean Platelet Volume 9.8 fL (7.4-10.4); Nucleated Red Blood Cells % 0.1; Platelet Count 156 10^3/uL (150-450); Red Blood Count 2.34 10^6 /uL (4.18-5.48); Red Cell Distribution Width 24 % (10-15); White Blood Count 6.6 10^3/uL (3.5-10.8)
[2021-12-29 05:38] LABS: Albumin 2.6 g/dL (3.2-5.2); Albumin/Globulin Ratio 1.2 (1-3); Calcium 7.8 mg/dL (8.6-10.3); Globulin 2.1 g/dL (2-4); Potassium 3.6 mmol/L (3.5-5.0); Total Bilirubin 0.8 mg/dL (0.2-1.0); Total Protein 4.7 g/dL (6.4-8.9)
[2021-12-29] MEDS ORDERED: fentaNYL 100 mcg/2 ml 50 MCG/ML VIAL IV PRN (08:22)
[2021-12-29] MEDS ORDERED: oxyCODONE/Acetamin 5/325 mg TAB PO PRN (08:22)
[2021-12-29] MEDS ORDERED: Naloxone 0.4 mg VIAL 0.4 mg/ml 1 ml VIAL IV PRN (08:22)
[2021-12-29] MEDS ORDERED: Ondansetron 4 mg VIAL 2 MG/ML 2 ml VIAL IV PRN (08:22)
[2021-12-29] MEDS ORDERED: Enoxaparin 40 MG/0.4 ML SYR SUBCUT SCH (09:00)
[2021-12-29] MEDS: Lansoprazole SUSP ORALSYR 3 MG/ML PO SCH (09:12)
[2021-12-29] MEDS: Cefdinir SUSP ORALSYR 50 MG/ML (250 mg/5 ml) PO SCH (09:13)
[2021-12-29 16:56] VITALS: BP 129/55
== END 2021-12-29 16:02 | disposition home health service (06) | DRG 871 ==
LOC: ED 21:25 → EDHOLD 12-20 10:03 → SUATTDRO 12-20 10:03 → ICU 12-20 12:26 → MEDTELE 12-22 20:13
PROVIDERS: ADMIT Internal Medicine; ATTEND Family Medicine

== ENCOUNTER 2022-05-28 11:20 | Inpatient (IN) ==
[2022-05-28 12:26] LABS: Albumin 3.4 g/dL (3.2-5.2); Magnesium 2.2 mg/dL (1.9-2.7); Potassium 3.9 mmol/L (3.5-5.0); Total Bilirubin 0.4 mg/dL (0.2-1.0)
[2022-05-28 12:32] LABS: Globulin 3.4 g/dL (2-4); Total Protein 6.8 g/dL (6.4-8.9)
[2022-05-28] MEDS ORDERED: Ondansetron 4 mg VIAL 2 MG/ML 2 ml VIAL IV PRN (15:35)
[2022-05-28] MEDS: Enoxaparin 30 MG/0.3 ML SYR SUBCUT SCH (17:57)
[2022-05-28] MEDS: NS 0.9% 1000 ml BAG 1,000 ML IV SCH (17:57)
[2022-05-29] MEDS: Loperamide LIQ 2 MG/15 ML UDC PO SCH ×5 (04:56→20:29)
[2022-05-29] MEDS: NS 0.9% 1000 ml BAG 1,000 ML IV SCH (05:04)
[2022-05-29 06:01] LABS: Calcium 7.9 mg/dL (8.6-10.3); eGFR CKD-EPI 68.9 (>60)
[2022-05-29] MEDS: D5W 1/2 NS IVFLUID 1000 ML IV SCH ×2 (07:56→16:34)
[2022-05-29 08:41] LABS: ABS Basophils 0.1 10^3/ul (0-0.2); ABS Eosinophils 0.1 10^3/ul (0-0.6); ABS Lymphocytes 0.9 10^3/ul (1.0-4.8); ABS Monocytes 0.6 10^3/ul (0-0.8); ABS Neutrophils 7.9 10^3/ul (1.5-7.7); Eosinophil % 1.3 %; Hematocrit 28 % (42-52); Hemoglobin 8.9 g/dL (14.0-18.0); Mean Corpuscular HGB Conc 32 g/dL (31-36); Mean Corpuscular Hemoglobin 32 pg (27-31); Mean Corpuscular Volume 102 fL (80-94); Mean Platelet Volume 10.1 fL (7.4-10.4); Nucleated Red Blood Cells % 0.1; Platelet Count 238 10^3/uL (150-450); Red Blood Count 2.77 10^6 /uL (4.18-5.48); Red Cell Distribution Width 17 % (10-15); White Blood Count 9.5 10^3/uL (3.5-10.8)
[2022-05-29 15:23] LABS: Calcium 7.8 mg/dL (8.6-10.3); Potassium 3.8 mmol/L (3.5-5.0); eGFR CKD-EPI 79.4 (>60)
[2022-05-29] MEDS: Enoxaparin 30 MG/0.3 ML SYR SUBCUT SCH (16:26)
[2022-05-29] MEDS ORDERED: Azithromycin 500 mg/250 ml NS 500 MG/250 ML BAG IVPB ONE (16:30)
[2022-05-29] MEDS ORDERED: Piperacillin/Tazobac ADVAN 3.375 GM in NS 0.9% 100 ml BAG 100 ML IV ONE (16:30)
[2022-05-29] MEDS ORDERED: Zosyn per Pharmacy NOTE FOLLOW UP SCH (17:00)
[2022-05-29] MEDS: ZOSYN 3.375 GM Q8H per EXTENDED INFUSION IV SCH (22:53)
[2022-05-30] MEDS: D5W 1/2 NS IVFLUID 1000 ML IV SCH ×3 (00:48→17:52)
[2022-05-30] MEDS: ZOSYN 3.375 GM Q8H per EXTENDED INFUSION IV SCH ×3 (05:10→22:03)
[2022-05-30 05:41] LABS: Calcium 7.8 mg/dL (8.6-10.3); Potassium 3.1 mmol/L (3.5-5.0); eGFR CKD-EPI 67.4 (>60)
[2022-05-30 08:42] LABS: Magnesium 1.8 mg/dL (1.9-2.7)
[2022-05-30] MEDS: KCL 20 MEQ/100 ML IVPREMIX 20 MEQ/100 ML BAG IV SCH ×2 (09:13→11:29)
[2022-05-30] MEDS: Loperamide LIQ 2 MG/15 ML UDC PO SCH ×4 (09:17→20:28)
[2022-05-30] MEDS: Enoxaparin 30 MG/0.3 ML SYR SUBCUT SCH (16:45)
[2022-05-30 16:57] LABS: ABS Basophils 0.1 10^3/ul (0-0.2); ABS Eosinophils 0.1 10^3/ul (0-0.6); ABS Lymphocytes 0.8 10^3/ul (1.0-4.8); ABS Monocytes 0.4 10^3/ul (0-0.8); ABS Neutrophils 10.6 10^3/ul (1.5-7.7); Eosinophil % 0.8 %; Hematocrit 27 % (42-52); Hemoglobin 8.6 g/dL (14.0-18.0); Lymphocyte % 6.4 %; Mean Corpuscular HGB Conc 32 g/dL (31-36); Mean Corpuscular Hemoglobin 32 pg (27-31); Mean Corpuscular Volume 100 fL (80-94); Mean Platelet Volume 9.6 fL (7.4-10.4); Platelet Count 200 10^3/uL (150-450); Red Blood Count 2.73 10^6 /uL (4.18-5.48); Red Cell Distribution Width 17 % (10-15); White Blood Count 11.9 10^3/uL (3.5-10.8)
[2022-05-31 00:34] LABS: Urine Appearance Turbid; Urine Bilirubin Negative (Negative); Urine Blood Negative (Negative); Urine Color Yellow; Urine Glucose Negative (Negative); Urine Ketones Negative (Negative); Urine Nitrite Negative (Negative); Urine Protein Negative (Negative); Urine Specific Gravity 1.019 (1.002-1.030); Urine Urobilinogen Negative (Negative)
[2022-05-31] MEDS: D5W 1/2 NS IVFLUID 1000 ML IV SCH ×3 (02:26→17:59)
[2022-05-31] MEDS: ZOSYN 3.375 GM Q8H per EXTENDED INFUSION IV SCH ×3 (05:46→22:20)
[2022-05-31 06:00] LABS: ABS Eosinophils 0.2 10^3/ul (0-0.6); ABS Lymphocytes 0.8 10^3/ul (1.0-4.8); ABS Monocytes 0.3 10^3/ul (0-0.8); ABS Neutrophils 7.2 10^3/ul (1.5-7.7); Eosinophil % 2.5 %; Hematocrit 24 % (42-52); Hemoglobin 7.6 g/dL (14.0-18.0); Lymphocyte % 8.8 %; Mean Corpuscular HGB Conc 31 g/dL (31-36); Mean Corpuscular Hemoglobin 31 pg (27-31); Mean Corpuscular Volume 99 fL (80-94); Mean Platelet Volume 9.5 fL (7.4-10.4); Platelet Count 170 10^3/uL (150-450); Red Blood Count 2.46 10^6 /uL (4.18-5.48); Red Cell Distribution Width 17 % (10-15); White Blood Count 8.5 10^3/uL (3.5-10.8)
[2022-05-31 06:30] LABS: Calcium 6.9 mg/dL (8.6-10.3); Potassium 3.1 mmol/L (3.5-5.0); eGFR CKD-EPI 79.4 (>60)
[2022-05-31 07:52] LABS: Magnesium 1.7 mg/dL (1.9-2.7)
[2022-05-31] MEDS: KCL 20 MEQ/100 ML IVPREMIX 20 MEQ/100 ML BAG IV SCH ×6 (09:53→23:57)
[2022-05-31] MEDS: Loperamide LIQ 2 MG/15 ML UDC PO SCH ×4 (09:56→22:06)
[2022-05-31] MEDS ORDERED: Magnesium Sulfate 2 gm BAG 2 GM/50 ML BAG IVPB ONE (15:50)
[2022-05-31] MEDS: Enoxaparin 30 MG/0.3 ML SYR SUBCUT SCH (17:46)
[2022-06-01] MEDS: D5W 1/2 NS IVFLUID 1000 ML IV SCH (02:36)
[2022-06-01] MEDS: ZOSYN 3.375 GM Q8H per EXTENDED INFUSION IV SCH ×3 (05:40→22:07)
[2022-06-01 06:19] LABS: Calcium 6.7 mg/dL (8.6-10.3); Magnesium 1.8 mg/dL (1.9-2.7); Potassium 4.2 mmol/L (3.5-5.0); Total Bilirubin 0.3 mg/dL (0.2-1.0)
[2022-06-01 06:25] LABS: Globulin 2.1 g/dL (2-4); Phosphorus 1.4 mg/dL (2.5-5.0); Total Protein 4.1 g/dL (6.4-8.9); eGFR CKD-EPI 90.7 (>60)
[2022-06-01] MEDS: Loperamide LIQ 2 MG/15 ML UDC PO SCH ×4 (08:05→21:30)
[2022-06-01] MEDS ORDERED: Magnesium Sulfate 2 gm BAG 2 GM/50 ML BAG IVPB ONE (10:46)
[2022-06-01] MEDS ORDERED: Potassium Phosphate IV 10 MMOL in NS 0.9% 250 ml 250 ML IVPB ONE (12:00)
[2022-06-01 12:08] LABS: ABS Eosinophils 0.3 10^3/ul (0-0.6); ABS Lymphocytes 0.6 10^3/ul (1.0-4.8); ABS Monocytes 0.3 10^3/ul (0-0.8); ABS Neutrophils 5.5 10^3/ul (1.5-7.7); Eosinophil % 3.8 %; Hematocrit 25 % (42-52); Hemoglobin 8.3 g/dL (14.0-18.0); Lymphocyte % 9.7 %; Mean Corpuscular HGB Conc 33 g/dL (31-36); Mean Corpuscular Hemoglobin 33 pg (27-31); Mean Corpuscular Volume 100 fL (80-94); Mean Platelet Volume 9.8 fL (7.4-10.4); Platelet Count 175 10^3/uL (150-450); Red Blood Count 2.53 10^6 /uL (4.18-5.48); Red Cell Distribution Width 17 % (10-15); White Blood Count 6.7 10^3/uL (3.5-10.8)
[2022-06-01 12:26] LABS: Calcium 6.9 mg/dL (8.6-10.3); Potassium 4.1 mmol/L (3.5-5.0)
[2022-06-01 12:32] LABS: eGFR CKD-EPI 91.4 (>60)
[2022-06-01 12:55] LABS: Folate > 20.00 ng/mL (5.90-24.80)
[2022-06-01 12:56] LABS: Vitamin B12 758 pg/mL (180-914)
[2022-06-01] MEDS ORDERED: fentaNYL 100 mcg/2 ml 50 MCG/ML VIAL ONE (16:58)
[2022-06-01] MEDS ORDERED: Midazolam 5 mg/5 ml VIAL 1 mg/ml 5 ml VIAL (5 mg) ONE (16:58)
[2022-06-01] MEDS: TPN 24 HR with Dextrose 50% Water 500 ML, Amino Acid Infusion 10% 1,000 ML, Lipid Emuls... CENT\\PICC SCH (18:46)
[2022-06-02] MEDS: ZOSYN 3.375 GM Q8H per EXTENDED INFUSION IV SCH (05:38)
[2022-06-02 06:07] LABS: ABS Eosinophils 0.2 10^3/ul (0-0.6); ABS Lymphocytes 0.9 10^3/ul (1.0-4.8); ABS Monocytes 0.3 10^3/ul (0-0.8); ABS Neutrophils 5.9 10^3/ul (1.5-7.7); Eosinophil % 3.4 %; Hematocrit 26 % (42-52); Hemoglobin 8.9 g/dL (14.0-18.0); Lymphocyte % 11.6 %; Mean Corpuscular HGB Conc 34 g/dL (31-36); Mean Corpuscular Hemoglobin 34 pg (27-31); Mean Corpuscular Volume 99 fL (80-94); Mean Platelet Volume 9.9 fL (7.4-10.4); Nucleated Red Blood Cells % 0.1; Platelet Count 189 10^3/uL (150-450); Red Cell Distribution Width 17 % (10-15); White Blood Count 7.4 10^3/uL (3.5-10.8)
[2022-06-02 06:32] LABS: Albumin 2.1 g/dL (3.2-5.2); Magnesium 1.9 mg/dL (1.9-2.7); Potassium 4.3 mmol/L (3.5-5.0); Total Bilirubin 0.3 mg/dL (0.2-1.0)
[2022-06-02 06:38] LABS: Globulin 2.2 g/dL (2-4); Phosphorus 1.8 mg/dL (2.5-5.0); Total Protein 4.3 g/dL (6.4-8.9); eGFR CKD-EPI 94.2 (>60)
[2022-06-02] MEDS: Loperamide LIQ 2 MG/15 ML UDC PO SCH (09:39)
[2022-06-02] MEDS ORDERED: Enoxaparin 30 MG/0.3 ML SYR SUBCUT ONE (11:11)
[2022-06-02 11:54] LABS: Carcinoembryonic Antigen 7.7 ng/mL (0.1-5.0)
[2022-06-02] MEDS ORDERED: Potassium Phosphate IV 5 MMOL in NS 0.9% 250 ml 250 ML IVPB ONE (13:00)
[2022-06-02] MEDS: PIPERACILLIN IV SCH ×2 (14:54→20:50)
[2022-06-02] MEDS: TAZOBACTAM IV SCH ×2 (14:54→20:50)
[2022-06-02] MEDS: TPN 24 HR with Dextrose 50% Water 500 ML, Amino Acid Infusion 10% 1,000 ML, Lipid Emuls... CENT\\PICC SCH (17:58)
[2022-06-03] MEDS: TAZOBACTAM IV SCH ×3 (02:50→21:05)
[2022-06-03] MEDS: PIPERACILLIN IV SCH ×3 (02:50→21:05)
[2022-06-03 05:43] LABS: Hematocrit 27 % (42-52); Hemoglobin 8.6 g/dL (14.0-18.0); Mean Corpuscular HGB Conc 32 g/dL (31-36); Mean Corpuscular Hemoglobin 32 pg (27-31); Mean Corpuscular Volume 99 fL (80-94); Mean Platelet Volume 9.9 fL (7.4-10.4); Platelet Count 174 10^3/uL (150-450); Red Cell Distribution Width 16 % (10-15); White Blood Count 5.7 10^3/uL (3.5-10.8)
[2022-06-03] MEDS ORDERED: Buffered Lidocaine 1% SYRIN 1 ml INTRADERM ONE ×2 (06:00)
[2022-06-03] MEDS ORDERED: Lactated Ringers 1000 ml BAG 1,000 ML IV SCH (06:00)
[2022-06-03 06:04] LABS: Albumin 2.1 g/dL (3.2-5.2); Calcium 6.9 mg/dL (8.6-10.3); Globulin 2.1 g/dL (2-4); Magnesium 1.7 mg/dL (1.9-2.7); Potassium 4.2 mmol/L (3.5-5.0); Total Bilirubin 0.3 mg/dL (0.2-1.0); Total Protein 4.2 g/dL (6.4-8.9); eGFR CKD-EPI 98.5 (>60)
[2022-06-03] MEDS ORDERED: ceFAZolin 2 GM in NS PREMIX 2 GM/100 ML BAG IVPB ONE ×2 (08:11→09:00)
[2022-06-03] MEDS: Lactated Ringers 1000 ml BAG 1,000 ML IV SCH ×2 (08:17→23:23)
[2022-06-03] MEDS ORDERED: Propofol 10 MG/ML 20 ML BTL ONE ×2 (08:23)
[2022-06-03] MEDS ORDERED: Dexamethasone IV 4 MG/ML VIAL 1 ml VIAL ONE (10:23)
[2022-06-03] MEDS ORDERED: Ondansetron 4 mg VIAL 2 MG/ML 2 ml VIAL ONE ×2 (10:23)
[2022-06-03] MEDS ORDERED: Rocuronium 50 mg VIAL 10 mg/ml 5 ml VIAL (50 mg) ONE (10:24)
[2022-06-03] MEDS ORDERED: fentaNYL 100 mcg/2 ml 50 MCG/ML VIAL ONE (10:24)
[2022-06-03] MEDS ORDERED: Metoclopramide 5 MG/ML VIAL (10 mg) IV PRN (12:04)
[2022-06-03] MEDS ORDERED: Naloxone 0.4 mg VIAL 0.4 mg/ml 1 ml VIAL IV PRN (12:04)
[2022-06-03] MEDS ORDERED: fentaNYL 100 mcg/2 ml 50 MCG/ML VIAL IV PRN (12:04)
[2022-06-03] MEDS ORDERED: Furosemide 40 mg/4 ml IV VIAL IV SLOW PU ONE (14:22)
[2022-06-03] MEDS ORDERED: Furosemide 20 mg/2 ml IV VIAL ONE (14:28)
[2022-06-03] MEDS ORDERED: Naloxone 0.4 mg VIAL 0.4 mg/ml 1 ml VIAL ONE (15:59)
[2022-06-03] MEDS ORDERED: Naloxone 0.4 mg VIAL 0.4 mg/ml 1 ml VIAL IV PUSH ONE (16:00)
[2022-06-03] MEDS ORDERED: TPN 24 HR with Dextrose 50% Water 500 ML, Amino Acid Infusion 10% 1,000 ML, Lipid Emuls... CENT\\PICC SCH (17:00)
[2022-06-04] MEDS ORDERED: Pantoprazole VIAL 40 MG VIAL IV ONE (00:41)
[2022-06-04] MEDS: Enoxaparin 30 MG/0.3 ML SYR SUBCUT SCH ×2 (00:43→18:22)
[2022-06-04] MEDS: TAZOBACTAM IV SCH ×4 (03:18→21:38)
[2022-06-04] MEDS: PIPERACILLIN IV SCH ×4 (03:18→21:38)
[2022-06-04 06:55] LABS: ABS Lymphocytes 0.8 10^3/ul (1.0-4.8); ABS Neutrophils 10.8 10^3/ul (1.5-7.7); Eosinophil % 0.2 %; Hematocrit 27 % (42-52); Hemoglobin 8.4 g/dL (14.0-18.0); Lymphocyte % 6.3 %; Mean Corpuscular HGB Conc 32 g/dL (31-36); Mean Corpuscular Hemoglobin 31 pg (27-31); Mean Corpuscular Volume 98 fL (80-94); Mean Platelet Volume 10.4 fL (7.4-10.4); Nucleated Red Blood Cells % 0.1; Platelet Count 199 10^3/uL (150-450); Red Blood Count 2.72 10^6 /uL (4.18-5.48); Red Cell Distribution Width 17 % (10-15); White Blood Count 12.6 10^3/uL (3.5-10.8)
[2022-06-04 07:24] LABS: Albumin 2.2 g/dL (3.2-5.2); Calcium 7.3 mg/dL (8.6-10.3); Globulin 2.3 g/dL (2-4); Magnesium 1.6 mg/dL (1.9-2.7); Phosphorus 2.1 mg/dL (2.5-5.0); Potassium 4.5 mmol/L (3.5-5.0); Total Bilirubin 0.2 mg/dL (0.2-1.0); Total Protein 4.5 g/dL (6.4-8.9); eGFR CKD-EPI 94.2 (>60)
[2022-06-04] MEDS ORDERED: Magnesium Sulfate IV 1GM/100ML 1 GM/100 ML BAG IV ONE (07:39)
[2022-06-04] MEDS: Lactated Ringers 1000 ml BAG 1,000 ML IV SCH (08:02)
[2022-06-04] MEDS ORDERED: Nitro 2% OINT (Nitroglycerin) 1 INCH/PAK TOPICAL SCH (09:00)
[2022-06-04] MEDS: Acetaminophen IV 1 GM/100ML 1,000 MG/100 ML BAG IV PRN (09:09)
[2022-06-04] MEDS ORDERED: Alteplase (CATHFLO) 2 MG VIAL IV ONE (17:42)
[2022-06-04] MEDS: TPN 24 HR with Dextrose 50% Water 500 ML, Amino Acid Infusion 10% 1,000 ML, Lipid Emuls... CENT\\PICC SCH (22:21)
[2022-06-05] MEDS: TAZOBACTAM IV SCH ×4 (02:58→19:59)
[2022-06-05] MEDS: PIPERACILLIN IV SCH ×4 (02:58→19:59)
[2022-06-05] MEDS: Acetaminophen IV 1 GM/100ML 1,000 MG/100 ML BAG IV PRN (09:06)
[2022-06-05] MEDS ORDERED: Dextrose 50% Syringe 50 ml 25 GM/50 ML SYRINGE IV PUSH PRN (10:02)
[2022-06-05] MEDS: TPN 24 HR with Dextrose 50% Water 500 ML, Amino Acid Infusion 10% 1,000 ML, Lipid Emuls... CENT\\PICC SCH (17:54)
[2022-06-05] MEDS: Enoxaparin 30 MG/0.3 ML SYR SUBCUT SCH (17:55)
[2022-06-06 05:25] LABS: ABS Basophils 0.1 10^3/ul (0-0.2); ABS Eosinophils 0.3 10^3/ul (0-0.6); ABS Lymphocytes 0.8 10^3/ul (1.0-4.8); ABS Monocytes 0.7 10^3/ul (0-0.8); ABS Neutrophils 4.8 10^3/ul (1.5-7.7); Eosinophil % 3.9 %; Hematocrit 25 % (42-52); Hemoglobin 7.9 g/dL (14.0-18.0); Lymphocyte % 12.1 %; Mean Corpuscular HGB Conc 32 g/dL (31-36); Mean Corpuscular Hemoglobin 31 pg (27-31); Mean Corpuscular Volume 97 fL (80-94); Mean Platelet Volume 9.7 fL (7.4-10.4); Platelet Count 183 10^3/uL (150-450); Red Blood Count 2.53 10^6 /uL (4.18-5.48); Red Cell Distribution Width 17 % (10-15); White Blood Count 6.5 10^3/uL (3.5-10.8)
[2022-06-06 06:17] LABS: Albumin 2.1 g/dL (3.2-5.2); Calcium 7.2 mg/dL (8.6-10.3); Globulin 2.2 g/dL (2-4); Magnesium 1.8 mg/dL (1.9-2.7); Phosphorus 1.8 mg/dL (2.5-5.0); Potassium 4.4 mmol/L (3.5-5.0); Total Bilirubin 0.2 mg/dL (0.2-1.0); Total Protein 4.3 g/dL (6.4-8.9)
[2022-06-06] MEDS ORDERED: Magnesium Sulfate 2 gm BAG 2 GM/50 ML BAG IVPB ONE (09:29)
[2022-06-06] MEDS ORDERED: Potassium Phosphate IV 10 MMOL in NS 0.9% 250 ml 250 ML IVPB ONE (09:29)
[2022-06-06] MEDS: Enoxaparin 30 MG/0.3 ML SYR SUBCUT SCH (17:59)
[2022-06-07 06:35] LABS: Albumin 2.2 g/dL (3.2-5.2); Calcium 7.4 mg/dL (8.6-10.3); Globulin 2.3 g/dL (2-4); Magnesium 1.9 mg/dL (1.9-2.7); Phosphorus 2.3 mg/dL (2.5-5.0); Potassium 4.7 mmol/L (3.5-5.0); Total Bilirubin 0.2 mg/dL (0.2-1.0); Total Protein 4.5 g/dL (6.4-8.9); eGFR CKD-EPI 98.5 (>60)
[2022-06-07] MEDS ORDERED: Potassium Phosphate IV 10 MMOL in NS 0.9% 250 ml 250 ML IVPB ONE (09:00)
[2022-06-07] MEDS ORDERED: Sodium Phosphate ADULT ENEMA 133 ML BTL PR PRN (14:24)
[2022-06-07] MEDS: Enoxaparin 30 MG/0.3 ML SYR SUBCUT SCH (17:06)
[2022-06-08 05:58] LABS: ABS Basophils 0.1 10^3/ul (0-0.2); ABS Eosinophils 0.3 10^3/ul (0-0.6); ABS Lymphocytes 0.9 10^3/ul (1.0-4.8); ABS Monocytes 0.4 10^3/ul (0-0.8); ABS Neutrophils 4.6 10^3/ul (1.5-7.7); Eosinophil % 5.3 %; Hematocrit 22 % (42-52); Hemoglobin 7.1 g/dL (14.0-18.0); Lymphocyte % 14.7 %; Mean Corpuscular HGB Conc 32 g/dL (31-36); Mean Corpuscular Hemoglobin 31 pg (27-31); Mean Corpuscular Volume 98 fL (80-94); Mean Platelet Volume 10.1 fL (7.4-10.4); Platelet Count 197 10^3/uL (150-450); Red Blood Count 2.26 10^6 /uL (4.18-5.48); Red Cell Distribution Width 17 % (10-15); White Blood Count 6.4 10^3/uL (3.5-10.8)
[2022-06-08 06:40] LABS: Calcium 7.4 mg/dL (8.6-10.3); Magnesium 1.6 mg/dL (1.9-2.7); eGFR CKD-EPI 101.3 (>60)
[2022-06-08] MEDS ORDERED: Magnesium Sulfate 2 gm BAG 2 GM/50 ML BAG IVPB ONE (07:40)
[2022-06-08 09:07] LABS: Ferritin 243.6 ng/mL (24-336)
[2022-06-08] MEDS: Ferric Gluconate IV 250 MG in NS 0.9% 100 ml BAG 200 ML IVPB SCH (12:14)
[2022-06-08] MEDS: Enoxaparin 30 MG/0.3 ML SYR SUBCUT SCH (17:47)
[2022-06-09 05:46] LABS: ABS Basophils 0.1 10^3/ul (0-0.2); ABS Eosinophils 0.3 10^3/ul (0-0.6); ABS Lymphocytes 0.8 10^3/ul (1.0-4.8); ABS Monocytes 0.5 10^3/ul (0-0.8); ABS Neutrophils 3.9 10^3/ul (1.5-7.7); Eosinophil % 5.9 %; Hematocrit 25 % (42-52); Hemoglobin 8.3 g/dL (14.0-18.0); Lymphocyte % 14.4 %; Mean Corpuscular HGB Conc 34 g/dL (31-36); Mean Corpuscular Hemoglobin 32 pg (27-31); Mean Corpuscular Volume 94 fL (80-94); Mean Platelet Volume 9.9 fL (7.4-10.4); Platelet Count 193 10^3/uL (150-450); Red Cell Distribution Width 18 % (10-15); White Blood Count 5.7 10^3/uL (3.5-10.8)
[2022-06-09 06:26] LABS: Calcium 7.6 mg/dL (8.6-10.3); Magnesium 1.9 mg/dL (1.9-2.7); eGFR CKD-EPI 97.5 (>60)
[2022-06-09 06:27] LABS: Potassium 5.1 mmol/L (3.5-5.0)
[2022-06-09] MEDS ORDERED: SODIUM ZIRCONIUM CYCLOSILICATE 10 GM PACKET PO ONE (07:10)
[2022-06-09] MEDS ORDERED: Furosemide 40 mg/4 ml IV VIAL IV SLOW PU ONE (07:10)
[2022-06-09] MEDS: Ferric Gluconate IV 250 MG in NS 0.9% 100 ml BAG 200 ML IVPB SCH (09:16)
[2022-06-09] MEDS: Enoxaparin 30 MG/0.3 ML SYR SUBCUT SCH (17:13)
[2022-06-10 06:13] LABS: ABS Basophils 0.1 10^3/ul (0-0.2); ABS Eosinophils 0.3 10^3/ul (0-0.6); ABS Lymphocytes 0.8 10^3/ul (1.0-4.8); ABS Monocytes 0.5 10^3/ul (0-0.8); ABS Neutrophils 3.4 10^3/ul (1.5-7.7); Eosinophil % 5.9 %; Hematocrit 24 % (42-52); Hemoglobin 7.6 g/dL (14.0-18.0); Mean Corpuscular HGB Conc 32 g/dL (31-36); Mean Corpuscular Hemoglobin 31 pg (27-31); Mean Corpuscular Volume 96 fL (80-94); Mean Platelet Volume 10.5 fL (7.4-10.4); Platelet Count 200 10^3/uL (150-450); Red Blood Count 2.46 10^6 /uL (4.18-5.48); Red Cell Distribution Width 18 % (10-15); White Blood Count 5.1 10^3/uL (3.5-10.8)
[2022-06-10 06:38] LABS: Calcium 7.7 mg/dL (8.6-10.3); Magnesium 1.7 mg/dL (1.9-2.7); Potassium 4.5 mmol/L (3.5-5.0); eGFR CKD-EPI 93.8 (>60)
[2022-06-10] MEDS ORDERED: Magnesium Sulfate 2 gm BAG 2 GM/50 ML BAG IVPB ONE (07:36)
[2022-06-10] MEDS: Ferric Gluconate IV 250 MG in NS 0.9% 250 ml 200 ML IVPB SCH (11:51)
[2022-06-11 05:44] LABS: ABS Basophils 0.1 10^3/ul (0-0.2); ABS Eosinophils 0.3 10^3/ul (0-0.6); ABS Lymphocytes 0.9 10^3/ul (1.0-4.8); ABS Monocytes 0.5 10^3/ul (0-0.8); ABS Neutrophils 3.4 10^3/ul (1.5-7.7); Hematocrit 23 % (42-52); Hemoglobin 7.4 g/dL (14.0-18.0); Lymphocyte % 16.8 %; Mean Corpuscular HGB Conc 32 g/dL (31-36); Mean Corpuscular Hemoglobin 31 pg (27-31); Mean Corpuscular Volume 96 fL (80-94); Mean Platelet Volume 10.1 fL (7.4-10.4); Nucleated Red Blood Cells % 0.1; Platelet Count 206 10^3/uL (150-450); Red Cell Distribution Width 18 % (10-15); White Blood Count 5.2 10^3/uL (3.5-10.8)
[2022-06-11 06:33] LABS: Calcium 7.8 mg/dL (8.6-10.3); Magnesium 1.9 mg/dL (1.9-2.7); Potassium 4.5 mmol/L (3.5-5.0)
[2022-06-11] MEDS: Ferric Gluconate IV 250 MG in NS 0.9% 250 ml 200 ML IVPB SCH (09:28)
[2022-06-11 11:37] VITALS: BP 110/57
[2022-06-11 11:37] LABS: Corrected Retic Count 1.8 % (0.5-1.5); Hematocrit for Retic CNT 23 % (42-52); Immature Retic Fraction 0.57; RBC Retic Count 2.39 10^6/uL (4.18-5.48)
== END 2022-06-11 13:35 | DRG 374 ==
LOC: CHOA 11:20 → MED 16:46 → SUATTDRO 16:46 → MED 05-31 20:39
PROVIDERS: ADMIT Internal Medicine Hematology & Oncology; ATTEND Internal Medicine

== ENCOUNTER 2022-07-18 06:15 | Observation (INO) ==
[2022-07-18] MEDS ORDERED: Lactated Ringers 1000 ml BAG 1,000 ML IV ONE (06:25)
[2022-07-18 06:45] LABS: ABS Lymphocytes 0.7 10^3/ul (1.0-4.8); ABS Monocytes 0.7 10^3/ul (0-0.8); ABS Neutrophils 5.3 10^3/ul (1.5-7.7); Eosinophil % 0.3 %; Hematocrit 34 % (42-52); Hemoglobin 10.9 g/dL (14.0-18.0); Lymphocyte % 10.3 %; Mean Corpuscular HGB Conc 32 g/dL (31-36); Mean Corpuscular Hemoglobin 31 pg (27-31); Mean Corpuscular Volume 96 fL (80-94); Mean Platelet Volume 8.4 fL (7.4-10.4); Platelet Count 216 10^3/uL (150-450); Red Blood Count 3.51 10^6 /uL (4.18-5.48); Red Cell Distribution Width 20 % (10-15); White Blood Count 6.7 10^3/uL (3.5-10.8)
[2022-07-18 07:29] LABS: Albumin 3.3 g/dL (3.2-5.2); Albumin/Globulin Ratio 1.2 (1-3); C Reactive Protein 13.38 mg/L (<8.01); Calcium 8.3 mg/dL (8.6-10.3); Creatinine, Serum 0.95 mg/dL (0.67-1.17); Globulin 2.8 g/dL (2-4); Magnesium 1.9 mg/dL (1.9-2.7); Potassium 4.9 mmol/L (3.5-5.0); Total Bilirubin 0.3 mg/dL (0.2-1.0); Total Protein 6.1 g/dL (6.4-8.9); eGFR CKD-EPI 80.4 (>60)
[2022-07-18] MEDS ORDERED: Ondansetron 4 mg VIAL 2 MG/ML 2 ml VIAL IV PRN (08:54)
[2022-07-18] MEDS ORDERED: Acetaminophen IV 1 GM/100ML 1,000 MG/100 ML BAG IV PRN (08:57)
[2022-07-18 09:36] LABS: Corrected Retic Count 0.7 % (0.5-1.5); Hematocrit for Retic CNT 33 % (42-52); Immature Retic Fraction 0.46; RBC Retic Count 3.47 10^6/uL (4.18-5.48)
[2022-07-18 10:07] LABS: Ferritin 527.2 ng/mL (24-336)
[2022-07-18] MEDS: Pantoprazole VIAL 40 MG VIAL IV SCH ×2 (11:06→21:14)
[2022-07-18] MEDS: Enoxaparin 40 MG/0.4 ML SYR SUBCUT SCH (11:06)
[2022-07-18] MEDS: Ferric Gluconate IV 250 MG in NS 0.9% 250 ml 200 ML IVPB SCH (15:19)
[2022-07-19 06:18] LABS: ABS Eosinophils 0.2 10^3/ul (0-0.6); ABS Monocytes 0.4 10^3/ul (0-0.8); ABS Neutrophils 1.9 10^3/ul (1.5-7.7); Eosinophil % 5.3 %; Hematocrit 28 % (42-52); Hemoglobin 9.1 g/dL (14.0-18.0); Lymphocyte % 28.6 %; Mean Corpuscular HGB Conc 32 g/dL (31-36); Mean Corpuscular Hemoglobin 31 pg (27-31); Mean Corpuscular Volume 95 fL (80-94); Nucleated Red Blood Cells % 0.1; Platelet Count 179 10^3/uL (150-450); Red Blood Count 2.97 10^6 /uL (4.18-5.48); Red Cell Distribution Width 19 % (10-15); White Blood Count 3.5 10^3/uL (3.5-10.8)
[2022-07-19 07:00] LABS: Creatinine, Serum 0.8 mg/dL (0.67-1.17); Magnesium 1.7 mg/dL (1.9-2.7); Phosphorus 3.1 mg/dL (2.5-5.0); Potassium 4.3 mmol/L (3.5-5.0); eGFR CKD-EPI 88.9 (>60)
[2022-07-19] MEDS ORDERED: Magnesium Sulfate 2 gm BAG 2 GM/50 ML BAG IVPB ONE (09:01)
[2022-07-19] MEDS: Enoxaparin 40 MG/0.4 ML SYR SUBCUT SCH (09:04)
[2022-07-19] MEDS: Pantoprazole VIAL 40 MG VIAL IV SCH ×2 (09:05→20:09)
[2022-07-19] MEDS: Ferric Gluconate IV 250 MG in NS 0.9% 250 ml 200 ML IVPB SCH (09:11)
[2022-07-20 09:23] LABS: ABS Eosinophils 0.1 10^3/ul (0-0.6); ABS Lymphocytes 0.8 10^3/ul (1.0-4.8); ABS Monocytes 0.4 10^3/ul (0-0.8); ABS Neutrophils 2.3 10^3/ul (1.5-7.7); Eosinophil % 3.7 %; Hematocrit 30 % (42-52); Hemoglobin 9.8 g/dL (14.0-18.0); Lymphocyte % 22.3 %; Mean Corpuscular HGB Conc 33 g/dL (31-36); Mean Corpuscular Hemoglobin 31 pg (27-31); Mean Corpuscular Volume 95 fL (80-94); Mean Platelet Volume 7.9 fL (7.4-10.4); Platelet Count 195 10^3/uL (150-450); Red Blood Count 3.16 10^6 /uL (4.18-5.48); Red Cell Distribution Width 19 % (10-15); White Blood Count 3.7 10^3/uL (3.5-10.8)
[2022-07-20] MEDS: Pantoprazole VIAL 40 MG VIAL IV SCH (09:44)
[2022-07-20] MEDS: Ferric Gluconate IV 250 MG in NS 0.9% 250 ml 200 ML IVPB SCH (09:44)
[2022-07-20] MEDS: Enoxaparin 40 MG/0.4 ML SYR SUBCUT SCH (09:45)
[2022-07-20 10:06] LABS: Albumin/Globulin Ratio 1.1 (1-3); Calcium 8.2 mg/dL (8.6-10.3); Creatinine, Serum 0.96 mg/dL (0.67-1.17); Globulin 2.8 g/dL (2-4); Potassium 4.5 mmol/L (3.5-5.0); Total Bilirubin 0.4 mg/dL (0.2-1.0); Total Protein 5.8 g/dL (6.4-8.9); eGFR CKD-EPI 79.4 (>60)
[2022-07-20 11:58] VITALS: BP 129/61
== END 2022-07-20 13:45 | disposition home or self-care (01) ==
LOC: EDHOLD 06:15 → ED 06:15 → SUATTDRO 08:54 → EDHOLD 12:06 → SSU 12:10
PROVIDERS: ADMIT Internal Medicine; ATTEND Internal Medicine